=== PATIENT | male | born 1960 | race Caucasian/White ===

== ENCOUNTER 2016-12-10 13:08 | Inpatient (IN) | payer BC ==
[2016-12-10] VITALS (9 sets, daily range): BP systolic 120–152; BP diastolic 82–109; PULSE 66–156; RESP 16–20; TEMP 98.2–98.5; O2SAT 97–99
[~2016-12-10] VITALS: Ht 175.3 cm; Wt 77.0 kg
[~2016-12-10 13:08] MED LIST: NAPR250T57 PO
--- NOTE | 2016-12-10 13:23 | PD ---
Physical Exam Time Seen by Provider: 13:21 Narrative 56yo M c/o "heart jumping up and down" x 1 hour. Denies chest pain, SOB. Denies anticoagulants. Denies hx of heart arrhythmias. Says something similar happened a few years ago and was checked out w/ no findings. Patient seen in triage. VS reviewed. Awaiting bed placement. Data Data Last Documented VS Vital Signs Date Time Temp Pulse Resp B/P Pulse Ox O2 Delivery O2 Flow Rate FiO2 12/10/16 13:09 98.5 91 20 149/109 99 Room Air MDM Supervised Visit with TOM: Jeni Mejia Dec 10, 2016 13:23
--- NOTE | 2016-12-10 14:13 | PD ---
HPI Chief Complaint: Cardiac Complaint Time Seen by Provider: 14:02 Travel History International Travel<30 days: No Contact w/Intl Traveler<30days: No Traveled to known affect area: No History of Present Illness HPI Patient is a 56-year-old male presents emergency Department with palpitations started approximately an hour prior to arrival. Patient states happened to him one time in the past and he was admitted to [facility] prior to them moved locations. He states that he was given some medicine and ultimately sent home. He has not seen a heart doctor since then. Is not on any blood thinners. Patient denies any chest pain or shortness of breath abdominal pain nausea or vomiting. He does also endorse urinary frequency. PFSH Past Medical History Arthritis: Yes Diminished Hearing: No Musculoskeletal: Yes (ARTHRITIS) Past Surgical History AICD: No Joint Replacement: No Oral Surgery: Yes (TONSILLECTOMY, MOUTH) Pacemaker: No Tonsillectomy: Yes Other Surgery: Yes (L knee, foot) Social History Alcohol Use: Yes Tobacco Use: No Substance Use: No Allergies-Medications (Allergen,Severity, Reaction): Coded Allergies: Lortab (Verified Adverse Reaction, Unknown, Irritability/Anxiety, 12/10/16) Reported Meds & Prescriptions Reported Meds & Active Scripts Active Review of Systems Except as stated in HPI: all other systems reviewed are Neg Physical Exam Narrative GENERAL: Well-developed well-nourished, no apparent distress. SKIN: Focused skin assessment warm/dry. HEAD: Atraumatic. Normocephalic. EYES: Pupils equal and round. No scleral icterus. No injection or drainage. ENT: No nasal bleeding or discharge. Mucous membranes pink and moist. NECK: Trachea midline. No JVD. CARDIOVASCULAR: Irregularly irregular with tachycardia. No murmur appreciated. RESPIRATORY: No accessory muscle use. Clear to auscultation. Breath sounds equal bilaterally. GASTROINTESTINAL: Abdomen soft, non-tender, nondistended. Hepatic and splenic margins not palpable. MUSCULOSKELETAL: No obvious deformities. No clubbing. No cyanosis. No edema. NEUROLOGICAL: Awake and alert. No obvious cranial nerve deficits. Motor grossly within normal limits. Normal speech. PSYCHIATRIC: Appropriate mood and affect; insight and judgment normal. Data Data Last Documented VS Vital Signs Date Time Temp Pulse Resp B/P Pulse Ox O2 Delivery O2 Flow Rate FiO2 12/10/16 16:46 95 18 144/93 97 Room Air 12/10/16 13:09 98.5 Orders Electrocardiogram (12/10/16 13:27) Complete Blood Count With Diff (12/10/16 13:27) Basic Metabolic Panel (Bmp) (12/10/16 13:27) Ckmb (Isoenzyme) Profile (12/10/16 13:27) Troponin I (12/10/16 13:27) Prothrombin Time / Inr (Pt) (12/10/16 13:27) Chest, Pa & Lat (12/10/16 13:27) Ecg Monitoring (12/10/16 14:11) Blood Pressure (12/10/16 14:11) Iv Access Insert/Monitor (12/10/16 14:11) Oximetry (12/10/16 14:11) Vital Signs (12/10/16 14:11) Diltiazem Inj (Cardizem Inj) (12/10/16 14:15) Sodium Chloride 0.9% Flush (Ns Flush) (12/10/16 14:15) Diltiazem Inj (Cardizem Inj) (12/10/16 14:45) Diltiazem Inj (Cardizem Inj) (12/10/16 15:00) CKMB (12/10/16 14:10) CKMB% (12/10/16 14:10) Sodium Chlor 0.9% 1000 Ml Inj (Ns 1000 M (12/10/16 15:00) Urinalysis - C+S If Indicated (12/10/16 14:48) Electrocardiogram (12/10/16 ) Admit Order (Ed Use Only) (12/10/16 ) Labs Laboratory Tests Test 12/10/16 12/10/16 14:10 15:10 White Blood Count 9.1 TH/MM3 Red Blood Count 5.45 MIL/MM3 Hemoglobin 16.0 GM/DL Hematocrit 47.8 % Mean Corpuscular Volume 87.7 FL Mean Corpuscular Hemoglobin 29.3 PG Mean Corpuscular Hemoglobin 33.4 % Concent Red Cell Distribution Width 13.4 % Platelet Count 287 TH/MM3 Mean Platelet Volume 7.5 FL Neutrophils (%) (Auto) 60.5 % Lymphocytes (%) (Auto) 27.4 % Monocytes (%) (Auto) 9.8 % Eosinophils (%) (Auto) 1.7 % Basophils (%) (Auto) 0.6 % Neutrophils # (Auto) 5.5 TH/MM3 Lymphocytes # (Auto) 2.5 TH/MM3 Monocytes # (Auto) 0.9 TH/MM3 Eosinophils # (Auto) 0.2 TH/MM3 Basophils # (Auto) 0.1 TH/MM3 CBC Comment DIFF FINAL Differential Comment Prothrombin Time 10.7 SEC Prothromb Time International 1.0 RATIO Ratio Sodium Level 142 MEQ/L Potassium Level 3.7 MEQ/L Chloride Level 106 MEQ/L Carbon Dioxide Level 30.1 MEQ/L Anion Gap 6 MEQ/L Blood Urea Nitrogen 24 MG/DL Creatinine 1.13 MG/DL Estimat Glomerular Filtration 67 ML/MIN Rate Random Glucose 102 MG/DL Calcium Level 9.4 MG/DL Total Creatine Kinase 178 U/L Creatine Kinase MB 1.9 NG/ML Troponin I LESS THAN 0.02 NG/ML Urine Color COLORLESS Urine Turbidity CLEAR Urine pH 5.5 Urine Specific [place] 1.003 Urine Protein NEG mg/dL Urine Glucose (UA) NEG mg/dL Urine Ketones NEG mg/dL Urine Occult Blood NEG Urine Nitrite NEG Urine Bilirubin NEG Urine Urobilinogen LESS THAN 2.0 MG/DL Urine Leukocyte Esterase NEG Urine RBC LESS THAN 1 /hpf Urine WBC LESS THAN 1 /hpf Microscopic Urinalysis Comment CULT NOT INDICATED MDM Medical Decision Making Medical Screen Exam Complete: Yes Emergency Medical Condition: Yes Interpretation(s) EKG shows atrial fibrillation with rapid ventricular response to a rate of 161, normal axis and normal R-wave progression. Rate precludes any ST segment interpretation. This an abnormal EKG. EKG repeated after 2 bolus Cardizem and Cardizem drip, now atrial fibrillation with an overall rate of 97, intervals otherwise within normal limits, patient is nonspecific RSR prime pattern in V1 and V2 and probably incomplete right bundle branch block. No concerning ST segment changes. This an abnormal EKG. Differential Diagnosis Atrial fibrillation, RVR, sinus tachycardia, SVT, CHF, ACS, hyperthyroidism, Narrative Course Patient roomed in the emergency department, was given 2 boluses of Cardizem and 0.25 and then 0.35 [place] stomachache, this controlled his rate down to the high 110's, Cardizem drip was started and ultimately the patient's heart rate was controlled between 90 and 105, patient is requiring 10 mg per hour Cardizem, initial troponin negative, repeat troponin was sent, TSH was sent. Patient was discussed with Dr. Almazan for admission and she is agreeable. Critical Care Narrative Aggregate critical care time was [35] minutes. Time to perform other separately billable procedures was not included in the critical care time. My time did not include minutes spent treating any other patients simultaneously or on activities that did not directly contribute to the patient's treatment. The services I provided to this patient were to treat and/or prevent clinically significant deterioration that could result in: , disability, organ failure. I provided critical care services requiring my management, as noted below: Chart data review, documentation time, medication orders and management, vital sign assessments/reviewing monitor data, ordering and reviewing lab tests, ordering and interpreting/reviewing x-rays and diagnostic studies, care of the patient and discussion of the patient with the admitting physicians. Diagnosis Primary Impression: Atrial fibrillation with RVR Admitting Information Admitting Physician Requests: Admit Condition: Stable Eric Lemus MD Dec 10, 2016 14:13
[2016-12-10] MEDS ORDERED: DILTIAZEM HCL 25 MG/5 ML VIAL IV PUSH ONE (14:15)
[2016-12-10] MEDS ORDERED: SODIUM CHLORIDE 0.9% FLUSH 10 ML FLUSH IVF PRN (14:15)
[2016-12-10 14:23] LABS: AUTOMATED NEUTROPHIL # 5.5 TH/MM3 (1.8-7.7); BASOPHIL # 0.1 TH/MM3 (0-0.2); BASOPHIL % 0.6 % (0.0-2.0); EOSINOPHIL # 0.2 TH/MM3 (0-0.4); EOSINOPHIL % 1.7 % (0.0-4.0); HEMATOCRIT 47.8 % (39.0-51.0); HEMO FLAGS DIFF FINAL; LYMPH % 27.4 % (9.0-44.0); LYMPHOCYTE # 2.5 TH/MM3 (1.0-4.8); MEAN CELL VOLUME 87.7 FL (80.0-100.0); MEAN CORPUSCULAR HEMOGLOBIN 29.3 PG (27.0-34.0); MEAN CORPUSCULAR HGB CONC 33.4 % (32.0-36.0); MONO % 9.8 % (0.0-8.0); NEUT % 60.5 % (16.0-70.0); PLATELET COUNT 287 TH/MM3 (150-450); RED BLOOD COUNT 5.45 MIL/MM3 (4.50-5.90); RED CELL DISTRIBUTION WIDTH 13.4 % (11.6-17.2); WHITE BLOOD COUNT 9.1 TH/MM3 (4.0-11.0)
--- NOTE | 2016-12-10 14:25 | RADRPT ---
EXAM DATE/TIME: 12/10/2016 14:06 [place] COMPARISON: No previous studies available for comparison. INDICATIONS : Chest discomfort and palpitations. MEDICAL HISTORY : None. SURGICAL HISTORY : None. ENCOUNTER: Initial ACUITY: 1 day PAIN SCORE: 0/10 LOCATION: Bilateral chest FINDINGS: PA and lateral views of the chest demonstrate the lungs to be symmetrically aerated without evidence of mass, infiltrate or effusion. The cardiomediastinal contours are unremarkable. Osseous structure s are intact. CONCLUSION: No acute disease. Rene Mcmullen MD on December 10, 2016 at 14:23 Board Certified Radiologist. This report was verified electronically.
[2016-12-10 14:30] LABS: PROTHROMBIN TIME - PATIENT 10.7 SEC (9.8-11.6)
[2016-12-10 14:38] LABS: ANION GAP 6 MEQ/L (5-15); BICARBONATE 30.1 MEQ/L (21.0-32.0); BLOOD UREA NITROGEN 24 MG/DL (7-18); CHLORIDE 106 MEQ/L (98-107); GLOMERULAR FILTRATION RATE 67 ML/MIN (>89); POTASSIUM 3.7 MEQ/L (3.5-5.1); SODIUM (NA) 142 MEQ/L (136-145)
[2016-12-10 14:41] LABS: CREATINE KINASE 178 U/L (39-308)
[2016-12-10] MEDS ORDERED: DILTIAZEM INJ 125 MG in SODIUM CHLORIDE 0.9% INJ 100 ML IV SCH (14:45)
[2016-12-10 14:54] LABS: CKMB 1.9 NG/ML (0.5-3.6)
[2016-12-10] MEDS ORDERED: DILTIAZEM HCL 50 MG/10 ML VIAL IV PUSH ONE (15:00)
[2016-12-10] MEDS ORDERED: SODIUM CHLOR 0.9% 1000 ML INJ 1,000 ML IV ONE (15:00)
[2016-12-10 16:14] LABS: BLOOD, URINE NEG (NEG); GLUCOSE,URINE NEG (NEG); KETONE, URINE NEG (NEG); NITRITE,URINE NEG (NEG); PH, URINE 5.5 (5.0-8.5); URINE COLOR COLORLESS (YELLW/STRAW)
[2016-12-10 16:15] LABS: COMMENT (UR) CULT NOT INDICATED; CULTURE IF INDICATED CULT NOT INDICATED
[2016-12-10] MEDS ORDERED: SODIUM CHLORIDE 0.9% FLUSH 10 ML FLUSH IV FLUSH PRN (17:00)
[2016-12-10] MEDS ORDERED: ASPIRIN 325 MG TAB PO SCH (18:15)
--- NOTE | 2016-12-10 18:17 | HHI.HP ---
HPI Service [facility] Primary Care Physician YANIRA Faye Admission Diagnosis Afib, RVR Diagnoses: Chief Complaint: Palpitations Travel History International Travel<30 Days: No Contact w/Intl Traveler <30 Da: No Traveled to Known Affected Are: No History of Present Illness Mr. Barnes is 56 yo, without significant health issues/history. He reported an episode that occurred approximately 10 years ago in which he had palpitations and felt like he was "going to pass out" and laid down. He was taken to [facility] in [facility] and "they put me on a monitor after I was discharged and didn't find anything." Pt said he is unsure of having a stress test. He said he could not recall the name of the reinforcing bar setter who treated him and does not follow cardiology at this time. Mr. 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 While awaiting lunch, he said ":I started to feel weird." He spoke of feeling his heart "pulsing really hard and my whole upper body was shaking." He noted his pulse was fast and had his "feel my wrist." She is reported to have said it was "fast" and they left the restaurant and drove to . Mr. Resendiz denied chest pain or pain radiating to his neck back or left arm. He also denied sweating, nausea, vomiting, shortness of breath. He did endorse a sense of being "puny" that has improved over the course of the day. He also reported having some muscular chest pain on the left side of his chest that "feels kind of like a pulled muscle." Since coming to the hospital, Mr. Barnes endorsed increased urine frequency and output. A 10 pt ROS was conducted and, except as noted above, was negative. Review of Systems Except as stated in HPI: all other systems reviewed are Neg Past Family Social History Past Medical History No significant medical history reported. He reported playing football in his youth and "may have had a few concussions." He denied traumatic accidents or injuries. Pt noted he takes Naproxen "once in blue brown." No regular medication was reported. Past Surgical History Bilateral ear tubes as a child. Tonsillectomy. Left knee repair due to "calcium buildup." A cyst was removed from his right foot. Reported Medications Naproxen on an as needed basis. Allergies: Coded Allergies: Lortab (Verified Adverse Reaction, Unknown, Irritability/Anxiety, 12/10/16) Active Ordered Medications Current Medications Medications (Trade) Dose Ordered Sig/Jenn Route Start Time Stop Time Status Last Admin (Cardizem Inj/NS Inj) 125 ml @ 0 mls/hr TITRATE IV 12/10/16 14:45 12/10/16 15:53 (NS Flush) 2 ml UNSCH PRN IV FLUSH 12/10/16 17:00 (NS Flush) 2 ml BID IV FLUSH 12/10/16 21:00 Family History Mother of a brain aneurysm at age 58. Social History Pt reported drinking 1-2 12 ounce beers most nights. Current recreational and illicit drug use was denied. Marijuana use was endorsed in 1979. Nicotine use was reported in 1979, for a limited basis. Caffeine use is reported as a alrge cup of coffee every morning. He denied use of energy drinks or other types of caffeinated beverages. Physical Exam Vital Signs Vital Signs Date Time Temp Pulse Resp B/P Pulse Ox O2 Delivery O2 Flow Rate FiO2 12/10/16 16:46 95 18 144/93 97 Room Air 12/10/16 15:53 95 16 152/92 98 Room Air 12/10/16 14:17 156 20 147/91 98 Room Air 12/10/16 14:17 156 18 147/91 98 Room Air 12/10/16 14:17 124 18 147/91 98 Room Air 12/10/16 14:05 141 20 98 Room Air 12/10/16 13:09 98.5 91 20 149/109 99 Room Air Physical Exam GENERAL: This is a well-nourished, well-developed patient, in no apparent distress. Pleasant and cooperative. SKIN: No rashes, ecchymoses or lesions. Cool and dry. HEAD: Atraumatic. Normocephalic. EYES: Pupils equal round and reactive. Extraocular motions intact. No scleral icterus. No injection or drainage. ENT: Nose without bleeding, purulent drainage. Throat without erythema. Airway patent. NECK: Trachea midline. No lymphadenopathy. Supple and nontender. CARDIOVASCULAR: Irregularly irregular rhythm and tachycardic rate without murmurs, gallops, or rubs. RESPIRATORY: Clear to auscultation. Breath sounds equal bilaterally. No wheezes , rales, or rhonchi. GASTROINTESTINAL: Abdomen soft, non-tender, nondistended. No hepato- splenomegaly or guarding. MUSCULOSKELETAL: Extremities without clubbing, cyanosis, or edema. No joint tenderness, effusion, or edema noted. NEUROLOGICAL: Awake and alert. Cranial nerves II through XII intact. Motor and sensory grossly within normal limits. Five out of 5 muscle strength in all muscle groups. Speech was clear and fluent.. Laboratory Laboratory Tests Test 12/10/16 12/10/16 14:10 15:10 White Blood Count 9.1 Red Blood Count 5.45 Hemoglobin 16.0 Hematocrit 47.8 Mean Corpuscular Volume 87.7 Mean Corpuscular Hemoglobin 29.3 Mean Corpuscular Hemoglobin 33.4 Concent Red Cell Distribution Width 13.4 Platelet Count 287 Mean Platelet Volume 7.5 Neutrophils (%) (Auto) 60.5 Lymphocytes (%) (Auto) 27.4 Monocytes (%) (Auto) 9.8 Eosinophils (%) (Auto) 1.7 Basophils (%) (Auto) 0.6 Neutrophils # (Auto) 5.5 Lymphocytes # (Auto) 2.5 Monocytes # (Auto) 0.9 Eosinophils # (Auto) 0.2 Basophils # (Auto) 0.1 CBC Comment DIFF FINAL Differential Comment Prothrombin Time 10.7 Prothromb Time International 1.0 Ratio Sodium Level 142 Potassium Level 3.7 Chloride Level 106 Carbon Dioxide Level 30.1 Anion Gap 6 Blood Urea Nitrogen 24 Creatinine 1.13 Estimat Glomerular Filtration 67 Rate Random Glucose 102 Calcium Level 9.4 Total Creatine Kinase 178 Creatine Kinase MB 1.9 Troponin I LESS THAN 0.02 Urine Color COLORLESS Urine Turbidity CLEAR Urine pH 5.5 Urine Specific [place] 1.003 Urine Protein NEG Urine Glucose (UA) NEG Urine Ketones NEG Urine Occult Blood NEG Urine Nitrite NEG Urine Bilirubin NEG Urine Urobilinogen LESS THAN 2.0 Urine Leukocyte Esterase NEG Urine RBC LESS THAN 1 Urine WBC LESS THAN 1 Microscopic Urinalysis Comment CULT NOT INDICATED Result Diagram: 6/15/17 1410 12/10/16 1410 Imaging Last Impressions Chest X-Ray 12/10/16 1327 Signed Impressions: Service Date/Time: , December 10, 2016 14:06 - CONCLUSION: No acute disease. Rene Mcmullen MD Assessment and Plan Problem List: (1) Atrial fibrillation with RVR ICD Code: I48.91 Status: Acute Assessment and Plan Mr. Barnes is 56 yo, without significant health issues/history. Atrial Fibrillation with RVR. -Cardizem drip initiated in the ED, titrate per protocol -Follow cardiac enzymes -Telemetry -Cardiology consulted, awaiting their input -Echocardiogram -TSH/Free T4 ordered -[id number] score is 0 -Aspirin 81 mg PO q day for anticoagulation Diet healthy Heat DVT prophylaxis: SCD's Code Status Full Code Discussed Condition With Case discussed with pt and Dr. Almazan The exam, history, and the medical decision-making described in the above note were completed with the assistance of the mid-level provider. I reviewed and agree with the findings presented. I attest that I had a [id number] encounter with the patient on the same day, and personally performed and documented my assessment and findings in the medical record. Patient stated that he felt palpitations today. He denies any chest pain, shortness of breathing, lightheadedness or dizziness. He stated that about 10 years ago he had a syncopal episode in which she was advised about her reinforcing bar setter. Patient stated that reinforcing bar setter stated that everything was normal. He stated that he has never heard the diagnosis of atrial fibrillation. Patient stated that at the moment he is asymptomatic. gen NAD CV irregular rate irregular rhythm. Rate very labile ranging from the 90s to the 120s. No rubs murmurs or gallops. resp clear to auscultation bilaterally Abdomen soft nondistended nontender no hepatosplenomegaly Extremity negative for any edema A/P Atrial fibrillation with RVR CHADSVASC 0 -Status post Cardizem bolus and now on Cardizem drip. -Rate is better controlled. Continue with the Cardizem drip. -Start baby aspirin. Will get TSH and echo. Will trend cardiac enzymes. Monitor on cardiac telemetry. Admit to [facility]. -Consult reinforcing bar setter. Physician Certification 2 Midnight Certification Type: Admission for Inpatient Services Order for Inpatient Services The services are ordered in accordance with Medicare regulations or non- Medicare payer requirements, as applicable. In the case of services not specified as inpatient-only, they are appropriately provided as inpatient services in accordance with the 2-midnight benchmark. Estimated LOS (days): 3 Three days is the estimated time the patient will need to remain in the hospital , assuming treatment plan goals are met and no additional complications. Post-Hospital Plan: Home Vimal Fenton Jr. Dec 10, 2016 18:17 Holli Almazan MD Dec 10, 2016 18:33
[2016-12-10] MEDS: SODIUM CHLORIDE 0.9% FLUSH 10 ML FLUSH IV FLUSH SCH (21:00)
[2016-12-10 23:32] LABS: ALKALINE PHOSPHATASE 88 U/L (45-117); ALT (GPT) 36 U/L (12-78); ANION GAP 10 MEQ/L (5-15); AST (GOT) 29 U/L (15-37); BICARBONATE 27.9 MEQ/L (21.0-32.0); BLOOD UREA NITROGEN 16 MG/DL (7-18); CHLORIDE 104 MEQ/L (98-107); GLOMERULAR FILTRATION RATE 64 ML/MIN (>89); POTASSIUM 3.4 MEQ/L (3.5-5.1); SODIUM (NA) 142 MEQ/L (136-145)
[2016-12-11] VITALS (16 sets, daily range): BP systolic 115–121; BP diastolic 73–88; PULSE 60–87; RESP 16–18; TEMP 97.6–98.4; O2SAT 97–98
[2016-12-11 07:14] LABS: HEMATOCRIT 46.2 % (39.0-51.0); MEAN CELL VOLUME 87.8 FL (80.0-100.0); MEAN CORPUSCULAR HEMOGLOBIN 29.3 PG (27.0-34.0); MEAN CORPUSCULAR HGB CONC 33.4 % (32.0-36.0); PLATELET COUNT 275 TH/MM3 (150-450); RED BLOOD COUNT 5.26 MIL/MM3 (4.50-5.90); RED CELL DISTRIBUTION WIDTH 13.5 % (11.6-17.2); REVIEW FLAG FINAL
[2016-12-11] MEDS ORDERED: DILTIAZEM HCL 30 MG TAB PO PRN (08:00)
--- NOTE | 2016-12-11 08:21 | MB ---
cc: ELISHA ELAM MD DATE OF CONSULTATION 12/11/2016 REASON FOR CONSULTATION Atrial fibrillation HISTORY OF PRESENT ILLNESS Mr. Barnes is a 56-year-old man who has a fairly unremarkable past medical history. He presented to the emergency room for his heart jumping up and down for about an hour. He denied any prior history of any cardiac problems or dysrhythmias to me. The patient reports he is very healthy and has no restrictions. He does heavy lifting at work without any chest pain. REVIEW OF SYSTEMS Except was mentioned in the HPI, all 12 systems are negative. OUTPATIENT MEDICATIONS None ALLERGIES LORTAB PAST MEDICAL HISTORY Negative for hypertension, hyperlipidemia, diabetes, CHF or CVA. FAMILY HISTORY Significant for mother who of a brain aneurysm. SOCIAL HISTORY The patient does drink a couple beers a night. PHYSICAL EXAM On physical examination, vital signs 98.4, 80, 87, 16, 115/73. GENERAL: He is a well-appearing man who is in no apparent distress. NECK: His neck is free from JVD. LUNGS: The lungs are bilaterally clear to auscultation. CARDIOVASCULAR: On cardiovascular examination, he has a normal S1 and S2. The rhythm is irregularly irregular. No murmurs, rubs or gallops were appreciated. ABDOMEN: The abdomen is soft. EXTREMITIES: The extremities are free from edema. Telemetry shows atrial fibrillation with a controlled ventricular rate. LABORATORY FINDINGS Significant for serial enzymes of less than 0.02/less than 0.02/less than 0.02. TSH is 2.3. IMPRESSION New-onset atrial fibrillation - The patient is well controlled with IV Cardizem. I will change him over to p.o. and utilize the short-acting for p.r.n. elevated heart rate. His CHADS-VASc score is zero, thus he can be managed with no anticoagulation or aspirin. I think it is reasonable for him to be discharged home when his heart rate is stable. I do agree with the echo. I do not feel he needs any ischemia workup as he is asymptomatic with vigorous activity and does not have any cardiac risk factors. Elisha Elam M.D. JUAN/YOLANDE /7:59 AM 8:09 AM
[2016-12-11] MEDS ORDERED: ASPIRIN 81 MG CHEW TAB PO SCH (09:00)
[2016-12-11] MEDS ORDERED: DILTIAZEM-CD 240 MG CAP ER PO SCH (09:00)
[2016-12-11] MEDS ORDERED: ASPIRIN 325 MG TAB PO SCH (09:00)
[2016-12-11] MEDS: SODIUM CHLORIDE 0.9% FLUSH 10 ML FLUSH IV FLUSH SCH (09:00)
[2016-12-11] MEDS ORDERED: CARD240C6 PO (13:42)
[2016-12-11] MEDS ORDERED: ASPI81CH25 PO (13:42)
--- NOTE | 2016-12-11 13:42 | HHI.DCPOC ---
Discharge Care Plan Diagnosis: (1) Atrial fibrillation with RVR Goals to Promote Your Health * To prevent worsening of your condition and complications * To maintain your health at the optimal level Directions to Meet Your Goals Take your medications as prescribed Follow your dietary instruction Follow activity as directed Keep your appointments as scheduled Take your immunizations and boosters as scheduled If your symptoms worsen call your PCP, if no PCP go to Urgent Care Center or Emergency Room Smoking is Dangerous to Your Health. Avoid second hand smoke Call the 24-hour hour crisis hotline for domestic abuse at Holli Almazan MD Dec 11, 2016 13:42
--- NOTE | 2016-12-11 16:06 | HHI.DS ---
Discharge Summary Admission Date Dec 10, 2016 at 16:50 Discharge Date: Dec 11, 2016 Admitting Diagnosis Afib, RVR (1) Atrial fibrillation with RVR ICD Code: I48.91 Diagnosis: Principal Procedures ECHO report pending Brief History - From Admission Mr. Barnes is 56 yo, without significant health issues/history. He reported an episode that occurred approximately 10 years ago in which he had palpitations and felt like he was "going to pass out" and laid down. He was taken to [facility] in [facility] and "they put me on a monitor after I was discharged and didn't find anything." Pt said he is unsure of having a stress test. He said he could not recall the name of the production control scheduler who treated him and does not follow cardiology at this time. Mr. 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 While awaiting lunch, he said ":I started to feel weird." He spoke of feeling his heart "pulsing really hard and my whole upper body was shaking." He noted his pulse was fast and had his "feel my wrist." She is reported to have said it was "fast" and they left the restaurant and drove to . Mr. Resendiz denied chest pain or pain radiating to his neck back or left arm. He also denied sweating, nausea, vomiting, shortness of breath. He did endorse a sense of being "puny" that has improved over the course of the day. He also reported having some muscular chest pain on the left side of his chest that "feels kind of like a pulled muscle." Since coming to the hospital, Mr. Barnes endorsed increased urine frequency and output. A 10 pt ROS was conducted and, except as noted above, was negative. CBC/BMP: 12/11/16 0636 12/10/16 6956 Significant Findings Laboratory Tests Test 12/10/16 12/10/16 12/10/16 14:10 17:35 22:36 Monocytes (%) (Auto) 9.8 % (0.0-8.0) Blood Urea Nitrogen 24 MG/DL (7-18) Estimat Glomerular Filtration 67 ML/MIN (>89) 64 ML/MIN (>89) Rate Troponin I LESS THAN 0.02 LESS THAN 0.02 NG/ML NG/ML (0.02-0.05) (0.02-0.05) Potassium Level 3.4 MEQ/L (3.5-5.1) Random Glucose 146 MG/DL (74-106) Calcium Level 8.3 MG/DL (8.5-10.1) Albumin 3.3 GM/DL (3.4-5.0) Imaging Last Impressions Chest X-Ray 12/10/16 1327 Signed Impressions: Service Date/Time: , December 10, 2016 14:06 - CONCLUSION: No acute disease. Rene Mcmullen MD PE at Discharge Gen NAD CV irregular rate and irregular rhythm resp CTA B/L Abd: soft NDNT Ext neg edema Pt update on day of discharge f/u for atrial fibrillation with RVR patient stated he has no symptoms. denied any CP, palpitations, SOB, lightheadedness/dizziness. he stated he is anxious to go home. cardizem gtt was d/yvette and he was put on oral cardizem with rate controlled. Hospital Course patient was admitted to [facility] due to atrial fibrillation in RVR HR in 160s. His only symptoms was palpitations. He was given 2 IV bolus of Cardizem then put on gtt with rate controlled the majority of the time. Patient [id number] score was 0 so he was put on ASA 81 mg PO daily. Printed Circuit Boards Solder Leveler consulted and placed patient on oral Cardizem in which gtt was discontinues. patient did well on oral medication. ECHO was done but no report. Patient told to see PCP within 1 week for follow up in regards to hospitalization and ECHO report. All questions were answer to patient satisfaction. Pt Condition on Discharge: Good Discharge Disposition: Discharge Home Discharge Time: <= 30 minutes Discharge Instructions DIET: Follow Instructions for: Heart Healthy Diet Activities you can perform: Regular-No Restrictions Follow up Referrals: PCP Follow-up - 1 Week New Medications: Aspirin (Aspirin Low Strength) 81 Mg Chew 81 MG PO DAILY atrial fibrillation #30 Ref 0 EA Diltiazem CD 24 HR (Cardizem CD 24 HR) 240 Mg Caper 240 MG PO DAILY atrial fibrillation #30 Ref 0 Holli Garzon MD Dec 11, 2016 16:06
--- NOTE | 2016-12-11 17:14 | ECHRPT ---
Indication: Atrial fibrillation/flutter CONCLUSIONS The transthoracic study is normal by two-dimensional, color flow imaging and Doppler interrogation. BP: 144 / 93 HR: 95 Rhythm: Sinus MEASUREMENTS (Male / Female) Normal Values Technical Quality:Good 2D ECHO LV Diastolic Diameter PLAX 4.4 cm 4.2 - 5.9 / 3.9 - 5.3 cm LV Systolic Diameter PLAX 3.0 cm IVS Diastolic Thickness 1.0 cm 0.6 - 1.0 / 0.6 - 0.9 cm LVPW Diastolic Thickness 0.9 cm 0.6 - 1.0 / 0.6 - 0.9 cm LV Relative Wall Thickness 0.4 LVOT Diameter 1.9 cm Aortic Root Diameter 3.7 cm LA Systolic Diameter LX 3.3 cm 3.0 - 4.0 / 2.7 - 3.8 cm DOPPLER AV Peak Velocity 121.0 cm/s AV Peak Gradient 5.9 mmHg AV Mean Gradient 4.0 mmHg AV Velocity Time Integral 24.2 cm LVOT Peak Velocity 102.0 cm/s LVOT Peak Gradient 4.2 mmHg LVOT Velocity Time Integral 19.5 cm LVOT Cardiac Index 2706.9 cm/minm AV Area Cont Eq vti 2.3 cm AV Area Cont Eq pk 2.4 cm Mitral E Point Velocity 74.0 cm/s Mitral A Point Velocity 49.4 cm/s Mitral E to A Ratio 1.5 LV E' Lateral Velocity 13.4 cm/s Mitral E to LV E' Lateral Ratio 5.5 LV E' Septal Velocity 11.9 cm/s Mitral E to LV E' Septal Ratio 6.2 TR Peak Velocity 277.0 cm/s TR Peak Gradient 30.7 mmHg PV Peak Velocity 54.8 cm/s PV Peak Gradient 1.2 mmHg FINDINGS LEFT VENTRICLE Normal left ventricular size and wall thickness. The left ventricular systolic function is normal wi th an estimated ejection fraction in the range of 65-70% Left ventricular diastolic function parameters are normal. RIGHT VENTRICLE Normal right ventricular size and systolic function. LEFT ATRIUM The left atrial size is normal. RIGHT ATRIUM The right atrial size is normal. ATRIAL SEPTUM Normal atrial septal thickness without atrial level shunting by limited color doppler interrogation. AORTA The aortic root and proximal ascending aorta are normal in size on limited imaging. MITRAL VALVE Structurally normal mitral valve. No mitral valve stenosis or regurgitation. AORTIC VALVE Trileaflet aortic valve. No aortic valve stenosis or regurgitation. TRICUSPID VALVE Structurally normal tricuspid valve. No tricuspid valve stenosis or regurgitation. PULMONARY VALVE The pulmonary valve is not well visualized. VESSELS The inferior vena cava is normal in size. PERICARDIUM No pericardial effusion. Aldo Lewis MD, FACC, [facility] [place] (Electronically Signed) Final Date:11 December 2016 17:13
--- NOTE | 2016-12-11 22:44 | EKG ---
Date Performed: 12/10/2016 Time Performed: 16:44:34 PTAGE: 56 years EKG: ATRIAL FIBRILLATION INCOMPLETE RIGHT BUNDLE BRANCH BLOCK ABNORMAL RHYTHM ECG PREVIOUS TRACING : 12/10/2016 13.51 DOCTOR: Veronica Trevino Interpretating Date/Time 12/11/2016 22:43:31
--- NOTE | 2016-12-11 22:51 | EKG ---
Date Performed: 12/10/2016 Time Performed: 13:51:34 PTAGE: 56 years EKG: ATRIAL FIBRILLATION WITH RAPID VENTRICULAR RESPONSE INCOMPLETE RIGHT BUNDLE BRANCH BLOCK NO NSPECIFIC ST & T-WAVE ABNORMALITY ABNORMAL RHYTHM ECG PREVIOUS TRACING : 02/15/2015 12.09 DOCTOR: Veronica Trevino Interpretating Date/Time 12/11/2016 22:48:56
== END 2016-12-11 16:05 | disposition home or self-care (01) | DRG 310 ==
LOC: NEPC 13:08 → NEDA 16:50 → HCIS 20:52
PROVIDERS: ADMIT Family Medicine; ATTEND Family Medicine
DX: I48.91 Unspecified atrial fibrillation (principal); M19.90 Unspecified osteoarthritis, unspecified site
CPT/HCPCS: 71020; 80048; 80053; 81001; 82550; 82552; 83735; 84443; 84484; 85025; 85027; 85610; 93005; 93306; 96361; 96365; 96375; J7030